=== PATIENT | female | born 1980 | race African-American/Black ===

== ENCOUNTER 2018-01-15 22:44 | Emergency (ER) | payer OTHER ==
[~2018-01-15] VITALS: Ht 165.1 cm; Wt 56.0 kg
[~2018-01-15 22:44] MED LIST: NAPR550 PO; ROBA750T3 PO
[2018-01-15] MEDS ORDERED: SODIUM CHLOR 0.9% 1000 ML INJ 1,000 ML IV ONE (22:54)
--- NOTE | 2018-01-15 22:59 | PD ---
HPI Chief Complaint: OD/ Ingestion Time Seen by Provider: 22:54 Travel History International Travel<30 days: No Contact w/Intl Traveler<30days: No Traveled to known affect area: No History of Present Illness HPI The patient is a 37-year-old -[place] female who presents to the emergency department via EMS as a Santos afternoon intentional ingestion of medications. According to EMS the patient took meloxicam and possibly a muscle relaxer along with alcohol earlier tonight. The police department secretary states the patient made comments to him regarding intent to harm herself. The patient admits to take meloxicam and hydrocodone, also admits to drinking alcohol. She now denies suicidal ideation, however, states "at this time I thought it was a good idea ". She denies any physical complaints but is somewhat sedated. She is a somewhat poor historian and much of the history is obtained from EMS and the police department secretary in the emergency department. PFSH Past Medical History Diminished Hearing: No Headaches: Yes Migraines: Yes : 6 Para: 6 Ectopic : No Ovarian Cysts: No Tubal Ligation: Yes Past Surgical History Abdominal Surgery: Yes (UMBILICAL HERNIA REPAIR) Appendectomy: Yes Hysterectomy: No Social History Alcohol Use: Yes (OCC) Tobacco Use: Yes (09/02 PPD) Substance Use: No Allergies-Medications (Allergen,Severity, Reaction): Coded Allergies: No Known Allergies (Verified , 09/01/14) Reported Meds & Prescriptions Reported Meds & Active Scripts Active Keflex (Cephalexin) 500 Mg Cap 500 Mg PO Q12H 7 Days Robaxin-750 (Methocarbamol) 750 Mg Tab 750 Mg PO QID PRN Anaprox Ds (Naproxen Sodium) 550 Mg Tab 550 Mg PO BID Review of Systems ROS Limitations: Clinical Condition, Poor Historian Except as stated in HPI: all other systems reviewed are Neg Cardiovascular: No: Chest Pain or Discomfort Respiratory: No: Shortness of Breath Gastrointestinal: No: Nausea, Vomiting, Abdominal Pain Neurologic: Positive: Change in Mentation Psychiatric: Positive: Suicidal Ideations (Per the police department secretary) Physical Exam Narrative GENERAL: 37-year-old -[place] female appears older than her stated age and is somewhat lethargic. SKIN: Focused skin assessment warm/dry. HEAD: Atraumatic. Normocephalic. EYES: Pupils equal and round. Pupils are pinpoint bilaterally. O scleral icterus. No injection or drainage. ENT: No nasal bleeding or discharge. Mucous membranes pink and moist. NECK: Trachea midline. No JVD. CARDIOVASCULAR: Regular rate and rhythm. No murmur appreciated. RESPIRATORY: No accessory muscle use. Clear to auscultation. Breath sounds equal bilaterally. GASTROINTESTINAL: Abdomen soft, non-tender, nondistended. Well-healed midline scar inferior to the umbilicus. No guarding or rigidity. MUSCULOSKELETAL: No obvious deformities. No clubbing. No cyanosis. No edema. NEUROLOGICAL: Lethargic, responds to her name. Awake and alert. No obvious cranial nerve deficits. Motor grossly within normal limits. Normal speech. PSYCHIATRIC: Appears intoxicated. Data Data Last Documented VS Vital Signs Date Time Temp Pulse Resp B/P (MAP) Pulse Ox O2 Delivery O2 Flow Rate FiO2 01/16/18 17:51 01/16/18 11:07 88 18 100 Room Air 01/16/18 08:19 98.3 Orders Orders Electrocardiogram (01/15/18 22:54) Complete Blood Count With Diff (01/15/18 22:54) Comprehensive Metabolic Panel (01/15/18 22:54) Prothrombin Time / Inr (Pt) (01/15/18 22:54) Act Partial Throm Time (Ptt) (01/15/18 22:54) Urinalysis - C+S If Indicated (01/15/18 22:54) Iv Access Insert/Monitor (01/15/18 22:54) Ecg Monitoring (01/15/18 22:54) Oximetry (01/15/18 22:54) Naloxone Inj (Narcan Inj) (01/15/18 23:00) Sodium Chloride 0.9% Flush (Ns Flush) (01/15/18 23:00) Sodium Chlor 0.9% 1000 Ml Inj (Ns 1000 M (01/15/18 22:54) Call Poison Control (01/15/18 22:54) Drug Screen, Random Urine (01/15/18 22:54) Alcohol (Ethanol) (01/15/18 22:54) Salicylates (Aspirin) (01/15/18 22:54) Tylenol (Acetaminophen) (01/15/18 22:54) Naloxone Inj (Narcan Inj) (01/15/18 23:01) Metoclopramide Inj (Reglan Inj) (01/15/18 23:15) Sodium Chlor 0.9% 1000 Ml Inj (Ns 1000 M (01/16/18 02:00) Sodium Chlor 0.9% 1000 Ml Inj (Ns 1000 M (01/16/18 02:30) Urine Culture (01/16/18 02:40) Ceftriaxone Inj (Rocephin Inj) (01/16/18 03:45) Salicylates (Aspirin) (01/16/18 03:53) Tylenol (Acetaminophen) (01/16/18 03:53) Hepatic Functional Panel (01/16/18 03:53) Lorazepam Inj (Ativan Inj) (01/16/18 04:15) Psych Screen (01/16/18 05:14) Diet Regular Basic (01/16/18 Lunch) Ed Discharge Order (01/16/18 15:54) Labs Laboratory Tests Test 01/15/18 23:15 01/16/18 02:40 01/16/18 04:05 White Blood Count 10.2 TH/MM3 Red Blood Count 3.73 MIL/MM3 Hemoglobin 12.2 GM/DL Hematocrit 36.1 % Mean Corpuscular Volume 96.7 FL Mean Corpuscular Hemoglobin 32.7 PG Mean Corpuscular Hemoglobin Concent 33.8 % Red Cell Distribution Width 13.4 % Platelet Count 312 TH/MM3 Mean Platelet Volume 8.3 FL Neutrophils (%) (Auto) 53.1 % Lymphocytes (%) (Auto) 37.0 % Monocytes (%) (Auto) 8.8 % Eosinophils (%) (Auto) 0.5 % Basophils (%) (Auto) 0.6 % Neutrophils # (Auto) 5.4 TH/MM3 Lymphocytes # (Auto) 3.8 TH/MM3 Monocytes # (Auto) 0.9 TH/MM3 Eosinophils # (Auto) 0.1 TH/MM3 Basophils # (Auto) 0.1 TH/MM3 CBC Comment DIFF FINAL Differential Comment Prothrombin Time 10.2 SEC Prothromb Time International Ratio 1.0 RATIO Activated Partial Thromboplast Time 26.5 SEC Blood Urea Nitrogen 9 MG/DL Creatinine 0.84 MG/DL Random Glucose 116 MG/DL Total Protein 7.3 GM/DL 6.4 GM/DL Albumin 3.7 GM/DL 3.1 GM/DL Calcium Level 8.7 MG/DL Alkaline Phosphatase 66 U/L 60 U/L Aspartate Amino Transf (AST/SGOT) 15 U/L 19 U/L Alanine Aminotransferase (ALT/SGPT) 34 U/L 31 U/L Total Bilirubin 0.2 MG/DL 0.1 MG/DL Sodium Level 144 MEQ/L Potassium Level 3.3 MEQ/L Chloride Level 108 MEQ/L Carbon Dioxide Level 22.6 MEQ/L Anion Gap 13 MEQ/L Estimat Glomerular Filtration Rate 91 ML/MIN Salicylates Level 5.1 MG/DL 4.6 MG/DL Acetaminophen Level 13.5 MCG/ML 3.1 MCG/ML Ethyl Alcohol Level 374 MG/DL Urine Color COLORLESS Urine Turbidity CLEAR Urine pH 5.5 Urine Specific [place] 1.007 Urine Protein NEG mg/dL Urine Glucose (UA) NEG mg/dL Urine Ketones NEG mg/dL Urine Occult Blood NEG Urine Nitrite POS Urine Bilirubin NEG Urine Urobilinogen LESS THAN 2.0 MG/DL Urine Leukocyte Esterase LARGE Urine RBC 4 /hpf Urine WBC 20 /hpf Urine WBC Clumps RARE Urine Squamous Epithelial Cells 1 /hpf Urine Bacteria RARE /hpf Urine Mucus FEW /lpf Microscopic Urinalysis Comment CULTURE INDICATED Urine Opiates Screen POS Urine Barbiturates Screen NEG Urine Amphetamines Screen NEG Urine Benzodiazepines Screen NEG Urine Cocaine Screen POS Urine Cannabinoids Screen POS Direct Bilirubin LESS THAN 0.1 MG/DL Indirect Bilirubin 0.0 MG/DL MDM Medical Decision Making Medical Screen Exam Complete: Yes Emergency Medical Condition: Yes Medical Record Reviewed: Yes Interpretation(s) EKG reveals normal sinus rhythm with a rate 82. No ischemic changes or ectopy noted. RSR prime in V1. Laboratory Tests Test 01/15/18 23:15 01/16/18 02:40 01/16/18 04:05 White Blood Count 10.2 TH/MM3 Red Blood Count 3.73 MIL/MM3 Hemoglobin 12.2 GM/DL Hematocrit 36.1 % Mean Corpuscular Volume 96.7 FL Mean Corpuscular Hemoglobin 32.7 PG Mean Corpuscular Hemoglobin Concent 33.8 % Red Cell Distribution Width 13.4 % Platelet Count 312 TH/MM3 Mean Platelet Volume 8.3 FL Neutrophils (%) (Auto) 53.1 % Lymphocytes (%) (Auto) 37.0 % Monocytes (%) (Auto) 8.8 % Eosinophils (%) (Auto) 0.5 % Basophils (%) (Auto) 0.6 % Neutrophils # (Auto) 5.4 TH/MM3 Lymphocytes # (Auto) 3.8 TH/MM3 Monocytes # (Auto) 0.9 TH/MM3 Eosinophils # (Auto) 0.1 TH/MM3 Basophils # (Auto) 0.1 TH/MM3 CBC Comment DIFF FINAL Differential Comment Prothrombin Time 10.2 SEC Prothromb Time International Ratio 1.0 RATIO Activated Partial Thromboplast Time 26.5 SEC Blood Urea Nitrogen 9 MG/DL Creatinine 0.84 MG/DL Random Glucose 116 MG/DL Total Protein 7.3 GM/DL 6.4 GM/DL Albumin 3.7 GM/DL 3.1 GM/DL Calcium Level 8.7 MG/DL Alkaline Phosphatase 66 U/L 60 U/L Aspartate Amino Transf (AST/SGOT) 15 U/L 19 U/L Alanine Aminotransferase (ALT/SGPT) 34 U/L 31 U/L Total Bilirubin 0.2 MG/DL 0.1 MG/DL Sodium Level 144 MEQ/L Potassium Level 3.3 MEQ/L Chloride Level 108 MEQ/L Carbon Dioxide Level 22.6 MEQ/L Anion Gap 13 MEQ/L Estimat Glomerular Filtration Rate 91 ML/MIN Salicylates Level 5.1 MG/DL 4.6 MG/DL Acetaminophen Level 13.5 MCG/ML 3.1 MCG/ML Ethyl Alcohol Level 374 MG/DL Urine Color COLORLESS Urine Turbidity CLEAR Urine pH 5.5 Urine Specific [place] 1.007 Urine Protein NEG mg/dL Urine Glucose (UA) NEG mg/dL Urine Ketones NEG mg/dL Urine Occult Blood NEG Urine Nitrite POS Urine Bilirubin NEG Urine Urobilinogen LESS THAN 2.0 MG/DL Urine Leukocyte Esterase LARGE Urine RBC 4 /hpf Urine WBC 20 /hpf Urine WBC Clumps RARE Urine Squamous Epithelial Cells 1 /hpf Urine Bacteria RARE /hpf Urine Mucus FEW /lpf Microscopic Urinalysis Comment CULTURE INDICATED Urine Opiates Screen POS Urine Barbiturates Screen NEG Urine Amphetamines Screen NEG Urine Benzodiazepines Screen NEG Urine Cocaine Screen POS Urine Cannabinoids Screen POS Direct Bilirubin LESS THAN 0.1 MG/DL Indirect Bilirubin 0.0 MG/DL Differential Diagnosis Differential diagnosis includes polysubstance abuse, substance ingestion, opiate overdose, alcohol intoxication, Tylenol toxicity, substance-induced mood disorder, suicidal ideation, NSAID overdose. Narrative Course IV was established, labs are drawn and sent, and the patient was placed on cardiac telemetry monitoring and continuous pulse oximetry monitoring. EKG was ordered and interpreted. Poison control was contacted. Acetaminophen level and salicylate level were sent to lab. The patient was administered Narcan 0.4 mg intravenously. The patient did respond to Narcan, became more awake and alert, her pupils opened to 4 mm bilateral and reactive. However, the patient did have one episode of vomiting, therefore, was administered Reglan 5 mg intravenously as there is a shortage of Zofran intravenously. I did have a discussion with family who states the patient has been under a lot of stress, secondary to arguments with her boyfriend. However, she has never had any previous suicide ideation or attempts in the past. Patient's alcohol level is elevated. Patient will be allowed to sleep it off and then will be evaluated by psychiatry. Disposition as per psych. Diagnosis Primary Impression: Intentional drug overdose Qualified Codes: T50.902A - Poisoning by unspecified drugs, medicaments and biological substances, intentional self-harm, initial encounter Patient Instructions: General Instructions Med/Other Pt SpecificInfo: Prescription(s) given Scripts Cephalexin (Keflex) 500 Mg Cap 500 MG PO Q12H for Infection for 7 Days, #14 CAP 0 Refills Prov: Lachelle Nichole 01/16/18 Disposition: 01 DISCHARGE HOME Condition: Stable Robert Matt MD January 15, 2018 22:59
[2018-01-15] MEDS ORDERED: SODIUM CHLORIDE 0.9% FLUSH 10 ML FLUSH IVF PRN (23:00)
[2018-01-15] MEDS ORDERED: NALOXONE HCL 0.4 MG/ML AMP IV PUSH ONE (23:00)
[2018-01-15 23:01] VITALS: BP 114/74; PULSE 93; RESP 15; TEMP 98.4; O2SAT 99
[2018-01-15] MEDS ORDERED: NALOXONE HCL 2 MG/2 ML VIAL ONE (23:01)
[2018-01-15 23:15] VITALS: RESP 12; O2SAT 99
[2018-01-15] MEDS ORDERED: METOCLOPRAMIDE HCL 10 MG/2 ML VIAL IV PUSH ONE (23:15)
[2018-01-15 23:24] LABS: AUTOMATED NEUTROPHIL # 5.4 TH/MM3 (1.8-7.7); BASOPHIL # 0.1 TH/MM3 (0-0.2); BASOPHIL % 0.6 % (0.0-2.0); EOSINOPHIL # 0.1 TH/MM3 (0-0.4); EOSINOPHIL % 0.5 % (0.0-4.0); HEMATOCRIT 36.1 % (35.0-46.0); HEMOGLOBIN 12.2 GM/DL (11.6-15.3); LYMPHOCYTE # 3.8 TH/MM3 (1.0-4.8); MEAN CELL VOLUME 96.7 FL (80.0-100.0); MEAN CORPUSCULAR HEMOGLOBIN 32.7 PG (27.0-34.0); MEAN CORPUSCULAR HGB CONC 33.8 % (32.0-36.0); MEAN PLATELET VOLUME 8.3 FL (7.0-11.0); MONO % 8.8 % (0.0-8.0); MONOCYTE # 0.9 TH/MM3 (0-0.9); NEUT % 53.1 % (16.0-70.0); PLATELET COUNT 312 TH/MM3 (150-450); RED BLOOD COUNT 3.73 MIL/MM3 (4.00-5.30); RED CELL DISTRIBUTION WIDTH 13.4 % (11.6-17.2); WHITE BLOOD COUNT 10.2 TH/MM3 (4.0-11.0)
[2018-01-15 23:34] LABS: PROTHROMBIN TIME - PATIENT 10.2 SEC (9.8-11.6)
[2018-01-15 23:40] LABS: ALBUMIN 3.7 GM/DL (3.4-5.0); ALT (GPT) 34 U/L (10-53); AST (GOT) 15 U/L (15-37); BICARBONATE 22.6 MEQ/L (21.0-32.0); BLOOD UREA NITROGEN 9 MG/DL (7-18); CALCIUM 8.7 MG/DL (8.5-10.1); CHLORIDE 108 MEQ/L (98-107); CREATININE 0.84 MG/DL (0.50-1.00); GLOMERULAR FILTRATION RATE 91 ML/MIN (>89); GLUCOSE,RANDOM 116 MG/DL (74-106); SODIUM (NA) 144 MEQ/L (136-145)
[2018-01-15 23:43] LABS: ACETAMINOPHEN 13.5 MCG/ML (10.0-30.0); ALKALINE PHOSPHATASE 66 U/L (45-117); TOTAL BILIRUBIN ADULT 0.2 MG/DL (0.2-1.0); TOTAL PROTEIN 7.3 GM/DL (6.4-8.2)
[2018-01-16 00:07] VITALS: BP 111/72; PULSE 86; RESP 15; O2SAT 93
[2018-01-16] MEDS ORDERED: SODIUM CHLOR 0.9% 1000 ML INJ 1,000 ML IV ONE ×2 (02:00→02:30)
[2018-01-16 02:17] VITALS: BP 106/60; PULSE 96; RESP 15; O2SAT 94
[2018-01-16 02:58] LABS: BACTERIA, URINE RARE /hpf; BILIRUBIN, URINE NEG (NEG); BLOOD, URINE NEG (NEG); GLUCOSE,URINE NEG (NEG); KETONE, URINE NEG (NEG); MUCUS URINE FEW /lpf (OCC); NITRITE,URINE POS (NEG); PH, URINE 5.5 (5.0-8.5); SQUAMOUS EPITHELIAL CELL URINE 1 /hpf (0-5); URINE COLOR COLORLESS (YELLW/STRAW); URINE LEUKOCYTE ESTERASE LARGE (NEG); WHITE BLOOD CELL CLUMPS RARE
[2018-01-16] MEDS ORDERED: cefTRIAXone INJ 1,000 MG in SODIUM CHLORIDE 0.9% INJ 100 ML IV ONE (03:45)
[2018-01-16 03:55] VITALS: BP 100/54; PULSE 96; RESP 15; O2SAT 95
[2018-01-16] MEDS ORDERED: LORazepam 2 MG/ML VIAL IV PUSH ONE (04:15)
--- NOTE | 2018-01-16 04:18 | PD ---
Physical Exam Date Seen by Provider: January 16, 2018 Time Seen by Provider: 01:00 Narrative For full history and physical examination please see previous providers note. Data Data Last Documented VS Vital Signs Date Time Temp Pulse Resp B/P (MAP) Pulse Ox O2 Delivery O2 Flow Rate FiO2 01/16/18 05:35 85 15 114/70 (85) 98 Room Air 01/15/18 23:01 98.4 Orders Orders Electrocardiogram (01/15/18 22:54) Complete Blood Count With Diff (01/15/18 22:54) Comprehensive Metabolic Panel (01/15/18 22:54) Prothrombin Time / Inr (Pt) (01/15/18 22:54) Act Partial Throm Time (Ptt) (01/15/18 22:54) Urinalysis - C+S If Indicated (01/15/18 22:54) Iv Access Insert/Monitor (01/15/18 22:54) Ecg Monitoring (01/15/18 22:54) Oximetry (01/15/18 22:54) Naloxone Inj (Narcan Inj) (01/15/18 23:00) Sodium Chloride 0.9% Flush (Ns Flush) (01/15/18 23:00) Sodium Chlor 0.9% 1000 Ml Inj (Ns 1000 M (01/15/18 22:54) Call Poison Control (01/15/18 22:54) Drug Screen, Random Urine (01/15/18 22:54) Alcohol (Ethanol) (01/15/18 22:54) Salicylates (Aspirin) (01/15/18 22:54) Tylenol (Acetaminophen) (01/15/18 22:54) Naloxone Inj (Narcan Inj) (01/15/18 23:01) Metoclopramide Inj (Reglan Inj) (01/15/18 23:15) Sodium Chlor 0.9% 1000 Ml Inj (Ns 1000 M (01/16/18 02:00) Sodium Chlor 0.9% 1000 Ml Inj (Ns 1000 M (01/16/18 02:30) Urine Culture (01/16/18 02:40) Ceftriaxone Inj (Rocephin Inj) (01/16/18 03:45) Salicylates (Aspirin) (01/16/18 03:53) Tylenol (Acetaminophen) (01/16/18 03:53) Hepatic Functional Panel (01/16/18 03:53) Lorazepam Inj (Ativan Inj) (01/16/18 04:15) Psych Screen (01/16/18 05:14) Labs Laboratory Tests Test 01/15/18 23:15 01/16/18 02:40 01/16/18 04:05 White Blood Count 10.2 TH/MM3 Red Blood Count 3.73 MIL/MM3 Hemoglobin 12.2 GM/DL Hematocrit 36.1 % Mean Corpuscular Volume 96.7 FL Mean Corpuscular Hemoglobin 32.7 PG Mean Corpuscular Hemoglobin Concent 33.8 % Red Cell Distribution Width 13.4 % Platelet Count 312 TH/MM3 Mean Platelet Volume 8.3 FL Neutrophils (%) (Auto) 53.1 % Lymphocytes (%) (Auto) 37.0 % Monocytes (%) (Auto) 8.8 % Eosinophils (%) (Auto) 0.5 % Basophils (%) (Auto) 0.6 % Neutrophils # (Auto) 5.4 TH/MM3 Lymphocytes # (Auto) 3.8 TH/MM3 Monocytes # (Auto) 0.9 TH/MM3 Eosinophils # (Auto) 0.1 TH/MM3 Basophils # (Auto) 0.1 TH/MM3 CBC Comment DIFF FINAL Differential Comment Prothrombin Time 10.2 SEC Prothromb Time International Ratio 1.0 RATIO Activated Partial Thromboplast Time 26.5 SEC Blood Urea Nitrogen 9 MG/DL Creatinine 0.84 MG/DL Random Glucose 116 MG/DL Total Protein 7.3 GM/DL 6.4 GM/DL Albumin 3.7 GM/DL 3.1 GM/DL Calcium Level 8.7 MG/DL Alkaline Phosphatase 66 U/L 60 U/L Aspartate Amino Transf (AST/SGOT) 15 U/L 19 U/L Alanine Aminotransferase (ALT/SGPT) 34 U/L 31 U/L Total Bilirubin 0.2 MG/DL 0.1 MG/DL Sodium Level 144 MEQ/L Potassium Level 3.3 MEQ/L Chloride Level 108 MEQ/L Carbon Dioxide Level 22.6 MEQ/L Anion Gap 13 MEQ/L Estimat Glomerular Filtration Rate 91 ML/MIN Salicylates Level 5.1 MG/DL 4.6 MG/DL Acetaminophen Level 13.5 MCG/ML 3.1 MCG/ML Ethyl Alcohol Level 374 MG/DL Urine Color COLORLESS Urine Turbidity CLEAR Urine pH 5.5 Urine Specific [place] 1.007 Urine Protein NEG mg/dL Urine Glucose (UA) NEG mg/dL Urine Ketones NEG mg/dL Urine Occult Blood NEG Urine Nitrite POS Urine Bilirubin NEG Urine Urobilinogen LESS THAN 2.0 MG/DL Urine Leukocyte Esterase LARGE Urine RBC 4 /hpf Urine WBC 20 /hpf Urine WBC Clumps RARE Urine Squamous Epithelial Cells 1 /hpf Urine Bacteria RARE /hpf Urine Mucus FEW /lpf Microscopic Urinalysis Comment CULTURE INDICATED Urine Opiates Screen POS Urine Barbiturates Screen NEG Urine Amphetamines Screen NEG Urine Benzodiazepines Screen NEG Urine Cocaine Screen POS Urine Cannabinoids Screen POS Direct Bilirubin LESS THAN 0.1 MG/DL Indirect Bilirubin 0.0 MG/DL [facility] Medical Record Reviewed: Yes Supervised Visit with LAURA: Yes Interpretation(s) Laboratory Tests Test 01/15/18 23:15 01/16/18 02:40 01/16/18 04:05 White Blood Count 10.2 TH/MM3 Red Blood Count 3.73 MIL/MM3 Hemoglobin 12.2 GM/DL Hematocrit 36.1 % Mean Corpuscular Volume 96.7 FL Mean Corpuscular Hemoglobin 32.7 PG Mean Corpuscular Hemoglobin Concent 33.8 % Red Cell Distribution Width 13.4 % Platelet Count 312 TH/MM3 Mean Platelet Volume 8.3 FL Neutrophils (%) (Auto) 53.1 % Lymphocytes (%) (Auto) 37.0 % Monocytes (%) (Auto) 8.8 % Eosinophils (%) (Auto) 0.5 % Basophils (%) (Auto) 0.6 % Neutrophils # (Auto) 5.4 TH/MM3 Lymphocytes # (Auto) 3.8 TH/MM3 Monocytes # (Auto) 0.9 TH/MM3 Eosinophils # (Auto) 0.1 TH/MM3 Basophils # (Auto) 0.1 TH/MM3 CBC Comment DIFF FINAL Differential Comment Prothrombin Time 10.2 SEC Prothromb Time International Ratio 1.0 RATIO Activated Partial Thromboplast Time 26.5 SEC Blood Urea Nitrogen 9 MG/DL Creatinine 0.84 MG/DL Random Glucose 116 MG/DL Total Protein 7.3 GM/DL Albumin 3.7 GM/DL Calcium Level 8.7 MG/DL Alkaline Phosphatase 66 U/L Aspartate Amino Transf (AST/SGOT) 15 U/L Alanine Aminotransferase (ALT/SGPT) 34 U/L Total Bilirubin 0.2 MG/DL Sodium Level 144 MEQ/L Potassium Level 3.3 MEQ/L Chloride Level 108 MEQ/L Carbon Dioxide Level 22.6 MEQ/L Anion Gap 13 MEQ/L Estimat Glomerular Filtration Rate 91 ML/MIN Salicylates Level 5.1 MG/DL Acetaminophen Level 13.5 MCG/ML Ethyl Alcohol Level 374 MG/DL Urine Color COLORLESS Urine Turbidity CLEAR Urine pH 5.5 Urine Specific [place] 1.007 Urine Protein NEG mg/dL Urine Glucose (UA) NEG mg/dL Urine Ketones NEG mg/dL Urine Occult Blood NEG Urine Nitrite POS Urine Bilirubin NEG Urine Urobilinogen LESS THAN 2.0 MG/DL Urine Leukocyte Esterase LARGE Urine RBC 4 /hpf Urine WBC 20 /hpf Urine WBC Clumps RARE Urine Squamous Epithelial Cells 1 /hpf Urine Bacteria RARE /hpf Urine Mucus FEW /lpf Microscopic Urinalysis Comment CULTURE INDICATED Urine Opiates Screen POS Urine Barbiturates Screen NEG Urine Amphetamines Screen NEG Urine Benzodiazepines Screen NEG Urine Cocaine Screen POS Urine Cannabinoids Screen POS Vital Signs Date Time Temp Pulse Resp B/P (MAP) Pulse Ox O2 Delivery O2 Flow Rate FiO2 01/16/18 03:55 96 15 100/54 (69) 95 Room Air 01/16/18 02:17 96 15 106/60 (75) 94 Room Air 01/16/18 00:07 86 15 111/72 (85) 93 Room Air 01/15/18 23:15 12 99 Room Air 01/15/18 23:10 91 12 99 Room Air 01/15/18 23:01 98.4 93 15 114/74 (87) 99 Narrative Course I assumed care of this patient change of shift from my attending physician. At that time labs are pending. Patient's vital signs remained stable. CBC with no acute findings, chemistry with a potassium of 3.3 otherwise unremarkable, urine drug screen is positive for opiates, cocaine, marijuana. Acetaminophen level is 13.5, salicylate 5.1, alcohol level is 374. Patient has received a total of 3 L of IV fluids. RN was contacted by poison control at 0350 who requested additional acetaminophen level and salicylate level as well as repeat LFTs. These have been obtained and are pending. Patient has become agitated, she is getting out of bed, using colorful language and demanding she be made comfortable. Patient was given 1 mg of Ativan IV 1 dose. Urinalysis resulted with a nitrate positive urinary tract infection. Patient was given 1 g of Rocephin IV. A prescription for Keflex was written. Repeated acetaminophen level trended down, as did the salicylate level. Patient has been resting comfortably, her vital signs are stable. She is medically cleared for psychiatric evaluation. Critical Care Narrative I assumed care of this patient change of shift from my attending physician. At that time labs are pending. Patient's vital signs remained stable. CBC with no acute findings, chemistry with a potassium of 3.3 otherwise unremarkable, urine drug screen is positive for opiates, cocaine, marijuana. Acetaminophen level is 13.5, salicylate 5.1, alcohol level is 374. Patient has received a total of 3 L of IV fluids. RN was contacted by poison control at 0350 who requested additional acetaminophen level and salicylate level as well as repeat LFTs. These have been obtained and are pending. Patient has become agitated, she is getting out of bed, using colorful language and demanding she be made comfortable. Patient was given 1 mg of Ativan IV 1 dose. Urinalysis resulted with a nitrate positive urinary tract infection. Patient was given 1 g of Rocephin IV. A prescription for Keflex was written. Diagnosis Primary Impression: Intentional drug overdose Qualified Codes: T50.902A - Poisoning by unspecified drugs, medicaments and biological substances, intentional self-harm, initial encounter Additional Impression: UTI (urinary tract infection) Qualified Codes: N39.0 - Urinary tract infection, site not specified; R31.9 - Hematuria, unspecified Med/Other Pt SpecificInfo: Prescription(s) given Scripts Cephalexin (Keflex) 500 Mg Cap 500 MG PO Q12H for Infection for 7 Days, #14 CAP 0 Refills Prov: Lachelle Nichole 01/16/18 Condition: Stable Lachelle Nichole January 16, 2018 04:18
[2018-01-16 04:39] LABS: ACETAMINOPHEN 3.1 MCG/ML (10.0-30.0); ALBUMIN 3.1 GM/DL (3.4-5.0); ALT (GPT) 31 U/L (10-53); AST (GOT) 19 U/L (15-37); DIRECT BILIRUBIN ADULT LESS THAN 0.1 MG/DL (0.0-0.2)
[2018-01-16 04:40] LABS: ALKALINE PHOSPHATASE 60 U/L (45-117); TOTAL BILIRUBIN ADULT 0.1 MG/DL (0.2-1.0); TOTAL PROTEIN 6.4 GM/DL (6.4-8.2)
[2018-01-16] MEDS ORDERED: CEPH-460 PO (05:15)
[2018-01-16 05:35] VITALS: BP 114/70; PULSE 85; RESP 15; O2SAT 98
[2018-01-16 08:19] VITALS: BP 95/57; PULSE 86; RESP 15; TEMP 98.3; O2SAT 99
[2018-01-16 11:07] VITALS: BP 105/71; PULSE 88; RESP 18; O2SAT 100
--- NOTE | 2018-01-16 12:21 | EKG ---
Date Performed: 01/15/2018 Time Performed: 23:01:43 PTAGE: 37 years EKG: Sinus rhythm POSSIBLE RIGHT VENTRICULAR CONDUCTION DELAY BORDERLINE ECG NO PREVIOUS TRACING DOCTOR: Ar Sarah Interpretating Date/Time 01/16/2018 12:19:44
--- NOTE | 2018-01-16 15:54 | PD ---
Physical Exam Time Seen by Provider: 15:[address] Sweeney has evaluated patient, lifted [facility] and cleared the patient for discharge. The patient's sister is picking her up. Data Data Last Documented VS Vital Signs Date Time Temp Pulse Resp B/P (MAP) Pulse Ox O2 Delivery O2 Flow Rate FiO2 01/16/18 11:07 88 18 105/71 (82) 100 Room Air 01/16/18 08:19 98.3 Orders Orders Electrocardiogram (01/15/18 22:54) Complete Blood Count With Diff (01/15/18 22:54) Comprehensive Metabolic Panel (01/15/18 22:54) Prothrombin Time / Inr (Pt) (01/15/18 22:54) Act Partial Throm Time (Ptt) (01/15/18 22:54) Urinalysis - C+S If Indicated (01/15/18 22:54) Iv Access Insert/Monitor (01/15/18 22:54) Ecg Monitoring (01/15/18 22:54) Oximetry (01/15/18 22:54) Naloxone Inj (Narcan Inj) (01/15/18 23:00) Sodium Chloride 0.9% Flush (Ns Flush) (01/15/18 23:00) Sodium Chlor 0.9% 1000 Ml Inj (Ns 1000 M (01/15/18 22:54) Call Poison Control (01/15/18 22:54) Drug Screen, Random Urine (01/15/18 22:54) Alcohol (Ethanol) (01/15/18 22:54) Salicylates (Aspirin) (01/15/18 22:54) Tylenol (Acetaminophen) (01/15/18 22:54) Naloxone Inj (Narcan Inj) (01/15/18 23:01) Metoclopramide Inj (Reglan Inj) (01/15/18 23:15) Sodium Chlor 0.9% 1000 Ml Inj (Ns 1000 M (01/16/18 02:00) Sodium Chlor 0.9% 1000 Ml Inj (Ns 1000 M (01/16/18 02:30) Urine Culture (01/16/18 02:40) Ceftriaxone Inj (Rocephin Inj) (01/16/18 03:45) Salicylates (Aspirin) (01/16/18 03:53) Tylenol (Acetaminophen) (01/16/18 03:53) Hepatic Functional Panel (01/16/18 03:53) Lorazepam Inj (Ativan Inj) (01/16/18 04:15) Psych Screen (01/16/18 05:14) Diet Regular Basic (01/16/18 Lunch) Diet Regular Basic (01/16/18 Dinner) Labs Laboratory Tests Test 01/15/18 23:15 01/16/18 02:40 01/16/18 04:05 White Blood Count 10.2 TH/MM3 Red Blood Count 3.73 MIL/MM3 Hemoglobin 12.2 GM/DL Hematocrit 36.1 % Mean Corpuscular Volume 96.7 FL Mean Corpuscular Hemoglobin 32.7 PG Mean Corpuscular Hemoglobin Concent 33.8 % Red Cell Distribution Width 13.4 % Platelet Count 312 TH/MM3 Mean Platelet Volume 8.3 FL Neutrophils (%) (Auto) 53.1 % Lymphocytes (%) (Auto) 37.0 % Monocytes (%) (Auto) 8.8 % Eosinophils (%) (Auto) 0.5 % Basophils (%) (Auto) 0.6 % Neutrophils # (Auto) 5.4 TH/MM3 Lymphocytes # (Auto) 3.8 TH/MM3 Monocytes # (Auto) 0.9 TH/MM3 Eosinophils # (Auto) 0.1 TH/MM3 Basophils # (Auto) 0.1 TH/MM3 CBC Comment DIFF FINAL Differential Comment Prothrombin Time 10.2 SEC Prothromb Time International Ratio 1.0 RATIO Activated Partial Thromboplast Time 26.5 SEC Blood Urea Nitrogen 9 MG/DL Creatinine 0.84 MG/DL Random Glucose 116 MG/DL Total Protein 7.3 GM/DL 6.4 GM/DL Albumin 3.7 GM/DL 3.1 GM/DL Calcium Level 8.7 MG/DL Alkaline Phosphatase 66 U/L 60 U/L Aspartate Amino Transf (AST/SGOT) 15 U/L 19 U/L Alanine Aminotransferase (ALT/SGPT) 34 U/L 31 U/L Total Bilirubin 0.2 MG/DL 0.1 MG/DL Sodium Level 144 MEQ/L Potassium Level 3.3 MEQ/L Chloride Level 108 MEQ/L Carbon Dioxide Level 22.6 MEQ/L Anion Gap 13 MEQ/L Estimat Glomerular Filtration Rate 91 ML/MIN Salicylates Level 5.1 MG/DL 4.6 MG/DL Acetaminophen Level 13.5 MCG/ML 3.1 MCG/ML Ethyl Alcohol Level 374 MG/DL Urine Color COLORLESS Urine Turbidity CLEAR Urine pH 5.5 Urine Specific [place] 1.007 Urine Protein NEG mg/dL Urine Glucose (UA) NEG mg/dL Urine Ketones NEG mg/dL Urine Occult Blood NEG Urine Nitrite POS Urine Bilirubin NEG Urine Urobilinogen LESS THAN 2.0 MG/DL Urine Leukocyte Esterase LARGE Urine RBC 4 /hpf Urine WBC 20 /hpf Urine WBC Clumps RARE Urine Squamous Epithelial Cells 1 /hpf Urine Bacteria RARE /hpf Urine Mucus FEW /lpf Microscopic Urinalysis Comment CULTURE INDICATED Urine Opiates Screen POS Urine Barbiturates Screen NEG Urine Amphetamines Screen NEG Urine Benzodiazepines Screen NEG Urine Cocaine Screen POS Urine Cannabinoids Screen POS Direct Bilirubin LESS THAN 0.1 MG/DL Indirect Bilirubin 0.0 MG/DL MDM Supervised Visit with LAURA: No Narrative Course Dr. Sweeney has evaluated patient, lifted [facility] and cleared the patient for discharge. The patient's sister is picking her up. Patient contracts safety. Denies suicidal or homicidal ideations. Patient will be provided community resource packet to [facility] for follow-up. Has friends and family for support. Patient was medically cleared by alternate provider prior to psych screening. Patient has been evaluated by psychiatry and and is now cleared for discharge. Diagnosis Primary Impression: Intentional drug overdose Qualified Codes: T50.902A - Poisoning by unspecified drugs, medicaments and biological substances, intentional self-harm, initial encounter Additional Impressions: UTI (urinary tract infection) Qualified Codes: N39.0 - Urinary tract infection, site not specified; R31.9 - Hematuria, unspecified Substance induced mood disorder Referrals: [facility] (Out patient) call for appointment Medication Management [facility] Primary Care Physician Psychiatrist Lukasz N[facility] Patient Instructions: General Instructions, Stress (ED), Cocaine Abuse (ED), Abuse of Alcohol (ED) Departure Forms: Tests/Procedures Additional Instruction: Contract safety to your self and others Follow-up with psychiatry Follow-up with primary care provider Follow-up with Bryan Martinez Return to the emergency department immediately with worsening of symptoms Med/Other Pt SpecificInfo: Prescription(s) given Scripts Cephalexin (Keflex) 500 Mg Cap 500 MG PO Q12H for Infection for 7 Days, #14 CAP 0 Refills Prov: Lachelle Nichole 01/16/18 Disposition: 01 DISCHARGE HOME Condition: Stable Ambar Good January 16, 2018 15:54
== END 2018-01-16 17:59 | disposition home or self-care (01) ==
LOC: NEPD 22:44 → NEPJ 01-16 17:59
DX: T50.902A Poisoning by unspecified drugs, medicaments and biological substances, intentional self-harm, initial encounter (principal); N39.0 Urinary tract infection, site not specified; F17.200 Nicotine dependence, unspecified, uncomplicated; R53.83 Other fatigue
CPT/HCPCS: 80053; 80076; 80307; 81001; 85025; 85610; 85730; 87077; 87086; 87186; 93005; 96374; 96375; 99284; J0696; J2060; J2310; J2765; J7030